=== PATIENT | male | born 1965 | race Caucasian/White ===

== ENCOUNTER → 2021-03-23 06:33 | Outpatient (CLI) | payer OTHER, SELFPAY ==
--- NOTE | 2021-03-17 07:27 | RAD_ITS ---
STUDY: X-RAY - ORBITS REASON FOR EXAM: Male, 55 years old. HISTORY OF EYE INJURY. PRE-MRI SCREENING TECHNIQUE: 2 view(s) of the orbits were obtained. COMPARISON: None. FINDINGS: Normal bilateral orbits without a metallic orbital foreign body. Normal visualized facial bones. Normal paranasal sinuses. The soft tissue structures are unremarkable. RAD/Orbits for Foreign Body IMPRESSION: No demonstrated metallic orbital foreign body. The patient is cleared for an MRI examination. Electronically Signed: Tee Arce MD at 7:48 EDT Tel , Service support ,
--- NOTE | 2021-03-23 06:49 | MRI_ITS ---
STUDY: MRI LEFT SHOULDER REASON FOR EXAM: Left posterior shoulder pain for 2 months. TECHNIQUE: Standardized fat and water weighted pulse sequences were obtained in all 3 orthogonal planes. COMPARISON: None. FINDINGS: There is supraspinatus tendinosis and a full-thickness tear of the distal supraspinatus tendon (T2 coronal images 9-12) measuring approximately 1.1 cm in length and width. Normal infraspinatus tendon. Normal subscapularis tendon. Normal teres minor tendon. Normal supraspinatus muscle. Normal infraspinatus muscle. Normal subscapularis muscle. Normal teres minor muscle. Normal glenohumeral articulation. There is very mild cystic change of the greater tuberosity. Normal biceps labral complex. Normal intracapsular long biceps tendon. Normal labrum. Normal capsulo- ligamentous complex. There is acromioclavicular arthrosis with mild hypertrophic changes effacing the subacromial fat (T2 sagittal image 11). There is a Type II morphology (curved), with a neutral orientation. There is a small volume of subacromial-subdeltoid bursal fluid. Normal visualized coracohumeral and coracoacromial ligaments. Normal deltoid muscle. Normal trapezius muscle. 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 Small volume of subacromial-subdeltoid bursal fluid. Electronically Signed: Maurizio Navarro MD at 8:22 EDT Tel , Service support ,
== END ==
PROVIDERS: PCP Family Medicine; Referring Provider Family Medicine; Visit Provider Family Medicine
DX: S49.92XA Unspecified injury of left shoulder and upper arm, initial encounter (principal); Z87.828 Personal history of other (healed) physical injury and trauma
CPT/HCPCS: 70030; 73221